=== PATIENT | male | born 1950 | race Caucasian/White ===

== ENCOUNTER 2024-06-04 09:34 | Outpatient (CLI) | payer MEDICARE, BC | END 2024-06-04 09:35 | disposition home or self-care (01) | LOC: CSHSLEEP 09:34 | PROVIDERS: ATTEND Internal Medicine Critical Care Medicine | DX: G47.33 Obstructive sleep apnea (adult) (pediatric) (principal); R53.83 Other fatigue; E11.9 Type 2 diabetes mellitus without complications; E66.9 Obesity, unspecified; Z68.32 Body mass index [BMI] 32.0-32.9, adult; R09.02 Hypoxemia | CPT/HCPCS: 95800 ==